=== PATIENT | female | born 1960 | race Caucasian/White ===

== ENCOUNTER 2017-11-14 20:01 | Emergency (ER) | payer BC, SELFPAY ==
[2017-11-14 20:02] VITALS: BP 137/86; PULSE 123; RESP 14; TEMP 39.1; O2SAT 100; BMI 21.7
--- NOTE | 2017-11-14 20:31 | RAD_ITS ---
STUDY: X-RAY CHEST REASON FOR EXAM: Female, 57 years old. Cough TECHNIQUE: Frontal and lateral views of the chest COMPARISON: None. FINDINGS: The lungs are clear. There are no pleural effusions. There is no pneumothorax. The heart is normal in size. The visualized osseous structures are within normal limits. RAD/Chest PA and Lateral IMPRESSION: No acute thoracic pathology. Electronically Signed: Shahram Dominguez, at 21:48 EST Tel , Service support ,
[2017-11-14 20:53] LABS: Absolute Neutrophil Count 4.6 X10^3/uL (2.0-7.7); Eosinophil# 0.02 X10^3/uL; Eosinophils% 0.3 % (0-5); Hematocrit 39.5 % (37-47); Hemoglobin 12.9 g/dl (12.0-15.0); Lymphocyte % 11.7 % (19-41); Mean Corp Hgb Conc 32.7 g/gl (32-36); Mean Corpuscular Hgb 29.1 pg (27.0-32.0); Mean Platelet Vol. 8.6 fl (6.2-12.0); Monocyte# 0.73 X10^3/uL; Monocyte% 12.2 % (0-10); Neutrophil # 4.55 X10^3/uL (2.7-7.7); Neutrophil % 75.8 % (47-70); Platelet Count 246 K/mm3 (150-450); RBC Distribution Width CV 12.8 % (11.6-14.6); RBC Distribution Width SD 41.3 fl (35.1-43.9); Red Blood Count 4.44 M/mm3 (4.2-5.4)
[2017-11-14 21:03] LABS: POSITIVE COUNT NO; POSITIVE DIFFERENTIAL NO; POSITIVE MORPHOLOGY NO
--- NOTE | 2017-11-14 21:08 | EKG12_ITS ---
Test Reason : CHEST HEAVINESS Blood Pressure : / mmHG Vent. Rate : 128 BPM Atrial Rate : 128 BPM P-R Int : 164 ms QRS Dur : 062 ms QT Int : 278 ms P-R-T Axes : 079 081 039 degrees QTc Int : 405 ms Sinus tachycardia Septal infarct , age undetermined Nonspecific T wave abnormality Abnormal ECG Confirmed by CHERYL LARRY, NORA ([id number]), editor trade journal SEAN MARAVILLA ([id number]) on 11/17/2017 1:16:43 PM Referred By: LUDMILA Confirmed By:NORA LUNA MD
[2017-11-14 21:11] LABS: Anion Gap 10 (5-15); BUN 10 mg/dL (7-18); BUN/Creat Ratio 10.9 RATIO (10-20); Calcium,Total 8.8 mg/dL (8.5-10.1); Chloride 101 mmol/L (98-107); Creatinine, Serum 0.92 mg/dL (0.55-1.02); EST Glomerular Filtration Rate 66 mL/min (>60); Est Glom Filt Rate - Afr Amer 80 mL/min (>60); Estimated Creatinine Clearance 51.26 ml/min; Glucose 101 mg/dL (74-106); Potassium 3.5 mmol/L (3.5-5.1); Sodium Level 137 mmol/L (136-145)
[2017-11-14] MEDS: Acetaminophen 500 MG Tablet 1000 MG PO (21:35)
[2017-11-14] MEDS: 0.9% Normal Saline 1,000 ML 999 ML IV (21:36)
[2017-11-14] MEDS: Ketorolac 30 MG/ML Syringe IV (21:36)
[2017-11-14 22:30] VITALS: BP 101/53; PULSE 115; RESP 17; TEMP 39.3; O2SAT 98
--- NOTE | 2017-11-14 22:47 | ED.DCSUM_ITS ---
- ER Visit Summary Date of Service: 11/14/17 Chief Complaint: Fever and cough History of Present Illness: The patient is a [address] Yeboah. She reports that she became ill today. She has had a fever to 102.5?. She has a cough productive of thick, white sputum without blood. She has sinus congestion and a sore throat that is 4 out of 10 severity. She reports that she has mild shortness of breath. She has had nausea without vomiting. She has diffuse myalgias and arthralgias. She has a headache that is 6 out of 10 in severity. Physical Examination: Vitals: Stable. Afebrile. General: Well-nourished and well-developed. Head: Normocephalic atraumatic. HEENT: Posterior oropharyngeal erythema. No tonsillar exudate or enlargement. No peritonsillar abscess. Neck: Supple, no lymphadenopathy. No JVD. Nontender. Cardiovascular: Regular rate and rhythm. No murmurs. Respiratory: No respiratory distress. Clear to auscultation bilaterally. Abdominal: Soft, nontender, nondistended, normal bowel sounds. No guarding, rebound, or peritoneal signs. Back: Nontender. Extremities: Nontender, no edema. Skin: Normal color, no rash. Neurologic: Alert and oriented ?3. Cranial nerves II through XII are intact. Normal strength and sensation. Psych: Normal affect. Test Results: X-ray is normal. CBC is remarkable for segment neutrophils 76, lymphocytes of 12, monocytes of 12. Chem-7 is normal. She is positive for influenza A. Emergency Department Course and Treatment: Patient was given a liter bolus of normal saline. She was given Toradol IV and Tylenol p.o. She is given Tamiflu p.o. She is resting comfortably. Treatment Plan: She will be discharged with symptomatic care and Tamiflu. Push fluids. Alternate Tylenol and/or ibuprofen. Follow-up with Dr. Yeboah in 1 week if not improving. Return to the emergency department for any worsening symptoms. Disposition: To home in improved and stable condition. Impression: 1. Influenza A. This note was generated with [employer] software. It may contain incorrect words, spelling, and punctuation that were not noted in review of the chart prior to signing ED Disposition - Plan for ED Patient: Disposition: Home or Assisted Living Chief Complaint: Cough Instructions: ED Flu Prescriptions: Oseltamivir Phosphate [Tamiflu] 75 mg PO BID #10 capsule Referrals: Diana Yeboah MD [Primary Care Provider] - 1 Week if not improving
[2017-11-14 22:57] VITALS: BP 97/55; PULSE 106; RESP 19; O2SAT 98
[2017-11-14] MEDS: Oseltamivir Phosphate 75 MG Capsule PO (22:57)
== END 2017-11-14 23:03 | disposition home or self-care (01) ==
LOC: ED 20:34
PROVIDERS: Emergency Provider Emergency Medicine; Family Provider Internal Medicine; PCP Internal Medicine
DX: J10.1 Influenza due to other identified influenza virus with other respiratory manifestations (principal); E78.00 Pure hypercholesterolemia, unspecified; Z79.899 Other long term (current) drug therapy
CPT/HCPCS: 36415; 71046; 80048; 83605; 85025; 87040; 87804; 93005; 96361; 96374; 99285; J7030; A4216

== ENCOUNTER → 2024-09-06 | Outpatient (CLI) | payer BC, SELFPAY ==
[2024-09-06] MEDS: Methacholine Chloride 18 ml neb kit INHALATION (07:11)
== END | disposition home or self-care (01) ==
PROVIDERS: PCP Internal Medicine
DX: R05.3 Chronic cough (principal)
CPT/HCPCS: 94070; 95070